=== PATIENT | female | born 1975 | race Caucasian/White ===

== ENCOUNTER 2019-01-06 11:05 | Emergency (ER) | payer OTHER ==
[2019-01-06 12:02] VITALS: BP 131/81
--- NOTE | 2019-01-06 13:09 | UC ---
UC General HPI - HPI Summary HPI Summary: History of kidney stones/ Here with - Last night started with abdominal pain below her umbilical area - describes as burning pain. Worse with movement - hurts to lie flat. THen began nausea and vomiting. last vomited this morning. Normal BM this morning. TOlerating liquids. Has not tried solid intake today. Hx of ovarian mesh on right side. NO fever. Chronic pain b/l - does not seem to be worse. mild dysuria and urgency. MEds; reviewed NO vaginal symptoms - History of Current Complaint Chief Complaint: UCGU Stated Complaint: URINARY, VOMITING Time Seen by Provider: 01/06/19 13:06 Hx Last Menstrual Period: 12/18/18 Pain Intensity: 5 - Allergy/Home Medications Allergies/Adverse Reactions: Allergies Allergy/AdvReac Type Severity Reaction Status Date / Time amoxicillin Allergy Rash Verified 01/06/19 12:02 Home Medications: Home Medications Acetaminophen [Tylenol Extra Strength] 1,000 mg PO Q4HR PRN 01/06/19 [History Confirmed 01/06/19] Lisinopril 20 mg PO DAILY 01/06/19 [History Confirmed 01/06/19] Metoprolol Succinate 50 mg PO DAILY 01/06/19 [History Confirmed 01/06/19] PMH/Surg Hx/FS Hx/Imm Hx Previously Healthy: Yes Cardiovascular History: Hypertension Other History Of: Negative For: Anticoagulant Therapy - Surgical History Surgical History: Yes Surgery Procedure, Year, and Place: right ovarian cyst - Family History Known Family History: Positive: Hypertension - Social History Alcohol Use: Rare Substance Use Type: None Smoking Status (MU): Never Smoked Tobacco - Immunization History Most Recent Influenza Vaccination: none Review of Systems All Other Systems Reviewed And Are Negative: Yes Constitutional: Positive: Negative Gastrointestinal: Positive: Abdominal Pain, Vomiting, Nausea Physical Exam Triage Information Reviewed: Yes Appearance: Well-Appearing Vital Signs: Initial Vital Signs Temp 97.4 F 01/06/19 11:52 Pulse 103 01/06/19 11:52 Resp 16 01/06/19 11:52 BP 131/81 01/06/19 11:52 Pulse Ox 100 01/06/19 11:52 Neck: Positive: Supple Respiratory: Positive: Lungs clear, Normal breath sounds Cardiovascular: Positive: RRR, No Murmur Abdomen Description: Positive: Soft, Other: - suprapubic tenderness, mild discomfort in LLQ and RLQ - no rebound or guarding Diagnostics - Radiology Renal Ultrasound Radiology Interpretation Completed By: Radiologist Summary of Radiographic Findings: Unremarkable Course/Dx - Course Course Of Treatment: This is a 43 yr old with hx of kidney stones that presents with abdominal pain and n/v trace blood in u/a US kidneys: unremarkable Plan Unclear etiology Exam benign Plan Likely cause of your symptoms are gastroenteritis Recommend continue supportive care COntinue to drink plenty of fluids Zofran as needed as directed for nausea If pain and/or vomiting persists or worsens, recommend evaluation in the ER for further work up and imaging studies - Diagnoses Provider Diagnosis: Gastroenteritis Discharge - Sign-Out/Discharge Documenting (check all that apply): Patient Departure All imaging exams completed and their final reports reviewed: Yes - Discharge Plan Condition: Fair Disposition: HOME Prescriptions: Ondansetron ODT TAB* [Zofran 4 MG Odt TAB*] 4 mg PO Q8H PRN #20 tab.odt PRN Reason: Nausea Patient Education Materials: Gastroenteritis (ED) Referrals: Shaun Khan PA [Primary Care Provider] - Additional Instructions: Likely cause of your symptoms are gastroenteritis Recommend continue supportive care COntinue to drink plenty of fluids Zofran as needed as directed for nausea If pain and/or vomiting persists or worsens, recommend evaluation in the ER for further work up and imaging studies - Billing Disposition and Condition Condition: FAIR Disposition: Home
== END 2019-01-06 14:14 | disposition home or self-care (01) ==
LOC: UCCORT 11:05
DX: K21.9 Gastro-esophageal reflux disease without esophagitis (principal); I10 Essential (primary) hypertension; Z79.899 Other long term (current) drug therapy; Z88.0 Allergy status to penicillin
CPT/HCPCS: 76775; 81003; 99212; G0463

== ENCOUNTER 2019-04-01 12:07 | Emergency (ER) | payer OTHER ==
[2019-04-01 12:34] VITALS: BP 127/64
--- NOTE | 2019-04-01 12:46 | UC ---
Skin Complaint HPI - HPI Summary HPI Summary: Pt presents with c/o of recurring swelling on left lateral back that she reports has had for "years". Pt states that she has "irritated the area" with a new bra and now the the area is swollen and bruised. Pt states that previously the area has become swollen and opened and drained "but not this time". - History of Current Complaint Chief Complaint: UCSkin Time Seen by Provider: 04/01/19 12:41 Stated Complaint: SKIN COMPLAINT Hx Obtained From: Patient Hx Last Menstrual Period: 03/01/19 ?: No Onset/Duration: Gradual Onset, Lasting Days, Still Present, Worse Since - onset Skin Exposure Onset/Duration: Days Ago Timing: Constant Onset Severity: Moderate Pain Intensity: 5 Location: Discrete - left mid lateral back just distal from axilla Character: Swelling, Raised Aggravating Factor(s): Touch Alleviating Factor(s): Nothing Associated Signs & Symptoms: Positive: Bruising - Allergy/Home Medications Allergies/Adverse Reactions: Allergies Allergy/AdvReac Type Severity Reaction Status Date / Time amoxicillin Allergy Rash Verified 04/01/19 12:26 Home Medications: Home Medications Sertraline* [Zoloft*] 50 mg PO DAILY 04/01/19 [History Confirmed 04/01/19] hydrOXYzine HCL TAB* [Atarax 25 MG TAB*] 25 mg PO TID PRN 04/01/19 [History Confirmed 04/01/19] PMH/Surg Hx/FS Hx/Imm Hx Previously Healthy: Yes Other History Of: Negative For: Anticoagulant Therapy - Surgical History Surgical History: Yes Surgery Procedure, Year, and Place: right ovarian cyst - Family History Known Family History: Positive: Hypertension - Social History Occupation: Unemployed Lives: With Family Alcohol Use: Rare Substance Use Type: None Smoking Status (MU): Never Smoked Tobacco Have You Smoked in the Last Year: No - Immunization History Most Recent Influenza Vaccination: none Vaccination Up to Date: No Review of Systems All Other Systems Reviewed And Are Negative: Yes Constitutional: Positive: Negative Skin: Positive: Bruising, Other - swelling Eyes: Positive: Negative ENT: Positive: Negative Respiratory: Positive: Negative Cardiovascular: Positive: Negative Gastrointestinal: Positive: Negative Genitourinary: Positive: Negative Motor: Positive: Negative Neurovascular: Positive: Negative Musculoskeletal: Positive: Negative Neurological: Positive: Negative Psychological: Positive: Negative Is Patient Immunocompromised?: No Physical Exam Triage Information Reviewed: Yes Appearance: Well-Appearing Vital Signs: Initial Vital Signs Temp 98 F 04/01/19 12:28 Pulse 82 04/01/19 12:28 Resp 18 04/01/19 12:28 BP 127/64 04/01/19 12:28 Pulse Ox 100 04/01/19 12:28 Vital Signs Reviewed: Yes Eye Exam: Normal ENT: Positive: Hearing grossly normal Dental Exam: Normal Neck exam: Normal Respiratory: Positive: No respiratory distress Musculoskeletal Exam: Normal Neurological Exam: Normal Psychological Exam: Normal Skin Exam: Other - 3cm X 2 cm soft moveable, non tender mass on left lateral back with ecchymotic area at base of swelling, appears to be more of a lipoma than a sebaceous cyst Course/Dx - Course Course Of Treatment: I disucssed with the pt the need to follow up with a surgeon for further evaluation, testing and treatment. - Differential Diagnoses - Skin Complaint Differential Diagnoses: Abscess, Other - lipoma - Diagnoses Provider Diagnosis: Soft tissue mass Discharge - Sign-Out/Discharge Documenting (check all that apply): Patient Departure All imaging exams completed and their final reports reviewed: No Studies - Discharge Plan Condition: Stable Disposition: HOME Patient Education Materials: Soft Tissue Mass (ED) Referrals: Leo Floyd [Medical Doctor] - If Needed Rubi Humphreys MD [Medical Doctor] - As Soon As Possible Shaun Khan PA [Primary Care Provider] - If Needed Additional Instructions: Please follow up with any of the providers we have suggested or one of your own choosing. - Billing Disposition and Condition Condition: STABLE Disposition: Home
== END 2019-04-01 12:56 | disposition home or self-care (01) ==
LOC: UCCORT 12:07
DX: M79.9 Soft tissue disorder, unspecified (principal)
CPT/HCPCS: 99211; G0463